=== PATIENT | male | born 1985 | race Caucasian/White ===

== ENCOUNTER 2017-12-05 06:52 | Observation (INO) | payer MEDICAID, SELFPAY ==
[2017-12-05 06:53] VITALS: BP 137/99; PULSE 47; RESP 17; TEMP 36.2; O2SAT 100; BMI 22.4
--- NOTE | 2017-12-05 07:27 | ED.DCSUM_ITS ---
- ER Visit Summary Date of Service: 12/05/17 Chief Complaint: [] Vomiting and diarrhea since Saturday History of Present Illness: The patient is a 32 M [] ports that a few prior to the onset of this illness he was exposed to a child had copious vomiting and diarrhea indicates on Saturday he began having copious diarrhea and vomiting. He has had no fevers no blood per rectum or stool. He has no history of GI elements he denies a past history he reports the symptoms seem to improve the other day and they have intensified today we had copious diarrhea and vomiting this morning came in for evaluation, other than the exposure above he has had no exposure to bad food or other individuals were sick or antibiotics he has no history of GI elements and he denies a past history is on no meds Physical Examination: [] His vital signs are within normal range clinically looks well he is in no distress his mucous membranes are moist neck is supple the lungs are clear the heart tones are normal abdomen soft nontender the back is unremarkable upper lower extremities unremarkable neurologically is awake moving all 4 his neck is very supple Test Results: [] Emergency Department Course and Treatment: [] Copious vomiting and diarrhea since Saturday clinically looks well IV fluids screening labs Zofran The patient's labs are generally unremarkable except his lipase is elevated to about [address] abdomen done showed nothing acute is persistent having vomiting here no diarrhea despite IV fluids and management he continues to complain of discomfort he cannot take any by mouth given elevated lipase the lack of improvement ED management of asked the hospital seen further management options and admission reports he does not drink alcohol he has had no trauma to the abdomen and he has no history of pancreatitis or GI elements Treatment Plan: [] Disposition: [] Admit stable pending hospitalist evaluation Impression: [] Pancreatitis , intractable vomiting diarrhea This note was generated with Resolver dictation software. It may contain incorrect words, spelling, and punctuation that were not noted in review of the chart prior to signing ED Disposition - Plan for ED Patient: Chief Complaint: Nausea/Vomiting/Diarrhea Referrals: Care Physician,No Primary [Primary Care Provider] -
[2017-12-05] MEDS: 0.9% Normal Saline 1,000 ML 1000 ML IV (07:36)
[2017-12-05] MEDS: Morphine 4 MG/ML Syringe IV ×2 (07:36→10:20)
[2017-12-05] MEDS: Ondansetron 4 MG/2 ML Vial IV (07:36)
[2017-12-05 07:43] LABS: Absolute Lymphocyte Count 2.88 X10^3/ul (0.83-4.51); Absolute Neutrophil Count 8.6 X10^3/uL (2.0-7.7); Basophil# 0.03 X10^3/uL; Basophil% 0.2 % (0-1); Eosinophil# 0.17 X10^3/uL; Eosinophils% 1.3 % (0-5); Hematocrit 50.6 % (40-54); Hemoglobin 17.8 g/dl (13.0-16.5); Lymphocyte # 2.88 X10^3/ul (4.0); Lymphocyte % 22.8 % (19-41); Mean Corp Hgb Conc 35.2 g/gl (32-36); Mean Corpuscular Hgb 32.7 pg (27.0-32.0); Mean Corpuscular Volume 92.8 fL (80-94); Mean Platelet Vol. 10.4 fl (6.2-12.0); Monocyte# 0.95 X10^3/uL; Monocyte% 7.5 % (0-10); Neutrophil # 8.56 X10^3/uL (2.7-7.7); Platelet Count 266 K/mm3 (150-450); RBC Distribution Width SD 43.5 fl (35.1-43.9); Red Blood Count 5.45 M/mm3 (4.6-6.2); White Blood Count 12.6 K/mm3 (4.4-11.0)
[2017-12-05 07:45] LABS: POSITIVE COUNT NO; POSITIVE DIFFERENTIAL NO; POSITIVE MORPHOLOGY NO
[2017-12-05 08:00] LABS: AST(SGOT) 33 U/L (15-37); Alanine Aminotransfer ALT/SGPT 63 U/L (16-61); Albumin, Serum 4.8 g/dL (3.2-5.0); Alkaline Phosphatase 92 U/L (45-117); Anion Gap 9 (5-15); BUN 18 mg/dL (7-18); BUN/Creat Ratio 15.1 RATIO (10-20); Bilirubin, Direct 0.18 mg/dL (0.00-0.30); Calcium,Total 9.8 mg/dL (8.5-10.1); Chloride 103 mmol/L (98-107); Creatinine, Serum 1.19 mg/dL (0.70-1.30); EST Glomerular Filtration Rate 75 mL/min (>60); Est Glom Filt Rate - Afr Amer 91 mL/min (>60); Estimated Creatinine Clearance 100.06 ml/min; Globulin 4.6 g/dL (2.2-4.2); Glucose 103 mg/dL (74-106); Lipase 517 U/L (73-393); Potassium 3.3 mmol/L (3.5-5.1); Protein, Total 9.4 g/dL (6.4-8.2); Sodium Level 137 mmol/L (136-145)
[2017-12-05] MEDS: proMETHazine 25 MG/ML Syringe 12.5 MG IV (08:29)
--- NOTE | 2017-12-05 08:42 | CT_ITS ---
STUDY: CT ABDOMEN AND PELVIS WITHOUT CONTRAST REASON FOR EXAM: Male, 32 years old. 3 day history of nausea, vomiting and diarrhea. RADIATION DOSAGE (If Supplied By Facility): CTDIvol = ( 6.18 ) mGy, DLP = ( 316.59 ) mGycm TECHNIQUE: Transaxial images were obtained from the dome of the diaphragm to the symphysis pubis without oral contrast, and without intravenous contrast. Sagittal and coronal images were reconstructed. Individualized dose optimization techniques were used for this CT. COMPARISON: None. FINDINGS: The visualized lung bases are unremarkable. The visualized portions of the heart are within normal limits. Normal liver. Normal gallbladder and extrahepatic biliary system. Normal spleen. Normal pancreas. Normal bilateral adrenal glands. Normal right kidney. Normal left kidney. Normal visualized stomach. Normal small intestine. Normal colon. The appendix is visualized and appears normal. Normal abdominal aorta. Normal inferior vena cava. Normal retroperitoneum. Normal urinary bladder. Normal abdominal wall. Normal osseous structures. CT/Abdomen/Pelvis without Cont IMPRESSION: Normal unenhanced CT of the abdomen and pelvis. Electronically Signed: Luis Saunders MD at 9:34 EDT Tel [phone], Service support ,
[2017-12-05 08:48] LABS: Squamous Epithelial Cells - UA 0 SEEN /hpf (0-5)
[2017-12-05 08:49] LABS: Color, Urine Yellow (Yellow); Glucose, Dipstick Normal (Normal); Ketone-Dipstick 15 mg/dl (Negative); Leukocyte Esterase-Dipstick 25 /ul (Negative); Nitrite-Dipstick Negative (Negative); Occult Blood-Urine 10 /ul (Negative); Protein-Dipstick 30 mg/dl (Negative); Specific Gravity, Urine 1.025 (1.002-1.030); Urine Clarity Sl. Cloudy (Clear); Urine Urobilinogen 1 mg/dl (Normal)
[2017-12-05 08:50] LABS: Urine Bilirubin Dipstick 1 mg/dL (Negative)
[2017-12-05 08:55] LABS: Bacteria 1+ /hpf (None Seen); Mucous, Urine 2+ /hpf (<or=2+); Red Blood Cells-Urine 0-5 SEEN /hpf (0-5); White Blood Cells 0-5 SEEN /hpf (0-5)
[2017-12-05 09:11] VITALS: BP 145/71; PULSE 49; RESP 16; O2SAT 99
[2017-12-05] MEDS: 0.9% Normal Saline 1,000 ML 999 ML IV ×2 (09:12→10:21)
--- NOTE | 2017-12-05 10:16 | HP.PCM_ITS ---
Problem List (1) Intractable nausea and vomiting Status: Acute (2) Dehydration Status: Acute (3) Hypokalemia Status: Acute (4) Elevated lipase Status: Acute (5) Tobacco dependence Status: Chronic History of Present Illness Date of Admission: 12/05/17 Chief Complaint: N/V/D The patient is a 32 year old M with no significant PMH other than tobacco dependence who presented to the ED at [facility] on 12/05/17 c/o N/V/D and abdominal pain associated with subjective fevers and chills. He denies alcohol abuse and denies any fatty food intolerance. No regular use of NSAID's and no hx of PUD. States he was around a friend's child 2 weeks ago with N/V but the sx resolved in 48H. He has been sick for 3 days. Unable to keep anything down. VS in the ER were temp 97.1, pulse rate 47, blood pressure 137/99, respiratory rate 17 and he was 100% saturated on room air. White blood cell count is mildly increased at 12.6 with an unremarkable differential. He is hemoconcentrated with a hemoglobin of 17.8 secondary to dehydration. Platelet count is within normal limits. Electrolytes are unremarkable with the exception of a low potassium at 3.3. BUN is 18 creatinine is 1.19. ALT is mildly increased at 63 with an AST of 33. Lipase was 517. Urine specific gravity was 1.025 and there were 0-5 RBCs and 0-5 WBCs. Urine drug screen is positive for opiates and cannabinoids. He was given morphine sulfate in the emergency room prior to the drug screen being taken. He denies any use of opiates as an outpatient. He does admit to using cannabis a couple times a week. He is being admitted to the hospital with a diagnosis of gastroenteritis , possible pancreatitis ( although the elevation in lipase may be due to vomiting). Past Medical History Past Medical History (Chronic Problems): Chronic Problems Tobacco dependence (Chronic) Allergies Penicillins Allergy (Verified 12/05/17 06:52) Rash Home Medications: Ambulatory Orders Medication Instructions Recorded NK [NK] 12/05/17 Surgical History: no surgical history Psychiatric History: No pertinent psych hx Lives: Alone Smoking Status: Current every day smoker Tobacco Use: Cigarettes Alcohol: Occasional Drugs: Marijuana - a couple times a week. Review of Systems Constitutional: Reports: Anorexia, Chills, Fever, Malaise, Weakness Eyes: Denies: Blurred vision, Vision Change HEENT: Denies: Head Aches, Sinus Congestion, Sinus Drainage Cardiovascular: Denies: Chest Pain, Palpitations Respiratory: Denies: Cough, Shortness of breath at rest, Sputum production Gastrointestinal: Reports: Abdominal Pain, Diarrhea, Nausea, Vomiting Genitourinary: Denies: Dysuria Musculoskeletal: Denies: Joint Pain, Joint Tenderness Skin: Denies: Jaundice, Rash, Wounds Neurological: Denies: Numbness, Tingling, Focal weakness Psychiatric: Denies: Anxiety, Depression, Homicidal Ideations, Suicidal Ideations Endocrine: Denies: Change in Body Habitus Hematologic/ Lymphatic: Denies: Hx of blood clot VTE Information - Inpt Only VTE Present on Admission: No VTE Mechan Device Prophylaxis: None Reason prophylaxis not ordered:: Treatment Not Indicated - young, ambulatory and RF 0-1 Patient Problems: Active and Suspected Problems Intractable nausea and vomiting (Acute) Dehydration (Acute) Hypokalemia (Acute) Elevated lipase (Acute) - Physical Exam General: Alert, Oriented x3, Cooperative, - - looks ill HEENT: Atraumatic, PERRLA, EOMI, Normocephalic Oral: No Gingival or Mucosal Lesions/ Ulcerations, Dry Mucosa Neck: Supple, No JVD, Negative Carotid Bruits, No Nodes, No Nuchal Rigidity, Trachea Midline Lungs: Clear to auscultation, No rhonchi, No wheeze, No rales Cardiovascular: Regular rate, Regular Rhythm, Normal S1, Normal S2, No murmurs, No Ectopic Activity, No rub noted, No Gallop Abdomen: Bowel Sounds Present - not hyperactive, Soft, Non-Distended, Tender - diffusely tender.....seems to be worst in the mid-epigastric to RUQ area. Extremities: No clubbing, No cyanosis, No edema, Capillary Refill Less than 3 Seconds, No Calf Tenderness Skin: No rashes, No breakdown Musculoskeletal: No Tenderness to Palpation of Joints or Extremities, No Muscle Wasting Lymphatic: No Cervical, Supraclavicular, or Inguinal Adenopathy Neurological: Cranial nerves II-XII grossly intact, Neuro grossly intact Psych/Mental Status: Normal Affect, Appropriate Vital Signs Temp Pulse Resp BP Pulse Ox 97.1 F L 49 L 16 145/71 H 99 12/05/17 06:53 12/05/17 09:11 12/05/17 09:11 12/05/17 09:11 12/05/17 09:11 Oxygen Delivery Method Room Air Weight: 175 lb Body Mass Index (BMI) 22.4 Laboratory Tests Past 24 Hrs 12/05/17 12/05/17 12/05/17 07:35 07:35 08:40 WBC 12.6 H RBC 5.45 Hgb 17.8 H Hct 50.6 MCV 92.8 MCH 32.7 H MCHC 35.2 RDW 13.0 RDW Differential 43.5 Plt Count 266 MPV 10.4 Immature Gran % (Auto) 0.200 Neut % (Auto) 68.0 Lymph % (Auto) 22.8 [place] % (Auto) 7.5 Eos % (Auto) 1.3 Baso % (Auto) 0.2 Absolute Neuts (auto) 8.6 H Absolute Lymphs (auto) 2.88 Total Counted Not Reportable Sodium 137 Potassium 3.3 L Chloride 103 Carbon Dioxide 25.0 Anion Gap 9 BUN 18 Creatinine 1.19 Estim Creat Clear Calc 100.06 Est GFR (MDRD) Af Amer 91 Est GFR (MDRD) Non-Af 75 BUN/Creatinine Ratio 15.1 Glucose 103 Calcium 9.8 Total Bilirubin 0.90 Direct Bilirubin 0.18 AST 33 ALT 63 H Alkaline Phosphatase 92 Total Protein 9.4 H Albumin 4.8 Globulin 4.6 H Lipase 517 H Urine Color Yellow Urine Clarity Sl. Cloudy Urine pH 6.0 Ur Specific [place] 1.025 Urine Protein 30 H Urine Glucose (UA) Normal Urine Ketones 15 H Urine Occult Blood 10 H Urine Nitrite Negative Urine Bilirubin 1 H Urine Urobilinogen 1 H Ur Leukocyte Esterase 25 H Urine RBC 0-5 SEEN Urine WBC 0-5 SEEN Ur Squamous Epith Cells 0 SEEN Urine Bacteria 1+ Urine Mucus 2+ Urine Opiates Screen Urine Methadone Screen Ur Barbiturates Screen Ur Phencyclidine Scrn Ur Amphetamines Screen U Methamphetamin-MDMA U Benzodiazepines Scrn Urine Cocaine Screen U Cannabinoids Screen Ur Drug Screen Comment 12/05/17 08:40 WBC RBC Hgb Hct MCV MCH MCHC RDW RDW Differential Plt Count MPV Immature Gran % (Auto) Neut % (Auto) Lymph % (Auto) [place] % (Auto) Eos % (Auto) Baso % (Auto) Absolute Neuts (auto) Absolute Lymphs (auto) Total Counted Sodium Potassium Chloride Carbon Dioxide Anion Gap BUN Creatinine Estim Creat Clear Calc Est GFR (MDRD) Af Amer Est GFR (MDRD) Non-Af BUN/Creatinine Ratio Glucose Calcium Total Bilirubin Direct Bilirubin AST ALT Alkaline Phosphatase Total Protein Albumin Globulin Lipase Urine Color Urine Clarity Urine pH Ur Specific [place] Urine Protein Urine Glucose (UA) Urine Ketones Urine Occult Blood Urine Nitrite Urine Bilirubin Urine Urobilinogen Ur Leukocyte Esterase Urine RBC Urine WBC Ur Squamous Epith Cells Urine Bacteria Urine Mucus Urine Opiates Screen Pending Urine Methadone Screen Pending Ur Barbiturates Screen Pending Ur Phencyclidine Scrn Pending Ur Amphetamines Screen Pending U Methamphetamin-MDMA Pending U Benzodiazepines Scrn Pending Urine Cocaine Screen Pending U Cannabinoids Screen Pending Ur Drug Screen Comment Pending Assessment/Plan Active and Suspected Problems Intractable nausea and vomiting (Acute) Dehydration (Acute) Hypokalemia (Acute) Elevated lipase (Acute) Impressions 1. gastroenteritis 2. elevated Lipase with normal pancreas and GB on CT of the abdomen 3. dehydration 4. tobacco dependence 5. regular cannabis use Clear liquids MS for pain control antiemetics PRN Hydrate fecal leuko's, enteric pathogen panel Recheck the lab in the AM No DVT prophylaxis needed...he is ambulatory with a low risk for DVT Code Visit Inpatient E&M: 94551 Init Hosp L2
[2017-12-05 10:31] LABS: Amphetamine Urine VISTA NEGATIVE (<1000 ng/mL); Barbiturate Urine VISTA NEGATIVE (< 200 ng/mL); Benzodiazepine Urine VISTA NEGATIVE (< 200 ng/mL); Cocaine Urine VISTA NEGATIVE (< 300 ng/mL); Ecstacy Urine VISTA NEGATIVE (< 500 ng/mL); Methadone Urine VISTA NEGATIVE (< 300 ng/mL); PCP Urine VISTA NEGATIVE (< 25 ng/mL); THC Urine VISTA POSITIVE (< 50 ng/mL); Vista UDS pH Range 7
[2017-12-05 11:15] VITALS: BMI 21.5
[2017-12-05 11:21] VITALS: BMI 21.6
[2017-12-05 11:29] VITALS: BP 111/61; PULSE 41; RESP 18; TEMP 36.7; O2SAT 98
[2017-12-05 11:35] VITALS: PULSE 41
[2017-12-05 17:52] VITALS: BP 107/51; PULSE 49; RESP 18; TEMP 36.9; O2SAT 96
[2017-12-05 19:46] LABS: Lipase 1321 U/L (73-393)
[2017-12-05 21:07] VITALS: BP 106/47; PULSE 58; RESP 16; TEMP 36.7; O2SAT 98
[2017-12-06 03:39] VITALS: BP 115/68; PULSE 47; RESP 16; TEMP 37.1; O2SAT 100
[2017-12-06] MEDS: Morphine 4 MG/ML Syringe IV (03:46)
[2017-12-06 06:41] LABS: Absolute Lymphocyte Count 4.23 X10^3/ul (0.83-4.51); Absolute Neutrophil Count 5.4 X10^3/uL (2.0-7.7); Basophil# 0.05 X10^3/uL; Basophil% 0.5 % (0-1); Eosinophil# 0.28 X10^3/uL; Eosinophils% 2.5 % (0-5); Hemoglobin 15.2 g/dl (13.0-16.5); Lymphocyte # 4.23 X10^3/ul (4.0); Lymphocyte % 38.5 % (19-41); Mean Corp Hgb Conc 34.5 g/gl (32-36); Mean Corpuscular Hgb 32.2 pg (27.0-32.0); Mean Corpuscular Volume 93.2 fL (80-94); Mean Platelet Vol. 10.6 fl (6.2-12.0); Monocyte# 0.99 X10^3/uL; Neutrophil # 5.42 X10^3/uL (2.7-7.7); Neutrophil % 49.3 % (47-70); Platelet Count 235 K/mm3 (150-450); RBC Distribution Width CV 12.7 % (11.6-14.6); RBC Distribution Width SD 42.4 fl (35.1-43.9); Red Blood Count 4.72 M/mm3 (4.6-6.2)
[2017-12-06 06:50] LABS: POSITIVE COUNT NO; POSITIVE DIFFERENTIAL NO; POSITIVE MORPHOLOGY NO
[2017-12-06 07:08] LABS: AST(SGOT) 22 U/L (15-37); Alanine Aminotransfer ALT/SGPT 43 U/L (16-61); Albumin, Serum 3.4 g/dL (3.2-5.0); Alkaline Phosphatase 70 U/L (45-117); Anion Gap 8 (5-15); BUN 10 mg/dL (7-18); BUN/Creat Ratio 10.3 RATIO (10-20); Calcium,Total 8.6 mg/dL (8.5-10.1); Chloride 109 mmol/L (98-107); Cholesterol 259 mg/dL (200); Creatinine, Serum 0.97 mg/dL (0.70-1.30); EST Glomerular Filtration Rate 95 mL/min (>60); Est Glom Filt Rate - Afr Amer 115 mL/min (>60); Estimated Creatinine Clearance 117.84 ml/min; Globulin 3.5 g/dL (2.2-4.2); Glucose 96 mg/dL (74-106); High Density Lipoprotein 30 mg/dL; Magnesium 2.2 mg/dL (1.6-2.6); Phosphorus 2.8 mg/dL (2.5-4.9); Potassium 4.1 mmol/L (3.5-5.1); Protein, Total 6.9 g/dL (6.4-8.2); Sodium Level 143 mmol/L (136-145); Triglycerides 114 mg/dL; Very Low Density Lipoprotein 23 mg/dL (5-40)
[2017-12-06 08:46] VITALS: BP 113/59; PULSE 46; RESP 18; TEMP 36.4; O2SAT 97
--- NOTE | 2017-12-06 13:14 | PCM.DC ---
- Discharge Diagnoses Current Active Problems: Current Active and Chronic Problems Intractable nausea and vomiting (Acute) Dehydration (Acute) Hypokalemia (Acute) Elevated lipase (Acute) Tobacco dependence (Chronic) You will use the following diet at home:: Other - stick to a soft diet with no carbonated beverages, no caffeine and no alcohol for the next few days and then advance as tolerated. Your food should be the consistency of: Mechanical soft (ground) Your liquids should be the consistency of: Regular/Thin Discharge Activity: - - rest over the weekend and you can return to work on Saturday Return to work on:: 12/09/17 May resume sexual activity in: No Restrictions Call your doctor if you observe: Fever of 101 or Higher, - - recurrent severe diarrhea, nausea or vomiting. any blood from the rectum or in vomitus. Instructions: ED Gastroenteritis Viral Additional Instructions: You most likely had a viral infection. You were dehydrated at admission to the hospital and this contributed to feeling worse. you can use Imodium for diarrhea, or kaopectate. Both are available over the counter at any pharmacy or supermarket. I have given you a prescription for Protonix which is an acid alvino that will help with nausea and stomach pain. He will take 1 daily for the next 7 days. Avoid caffeine, alcohol, spicy foods or fatty foods for the next few days. Allergies/Adverse Reactions: Allergies Penicillins Allergy (Verified 12/05/17 06:52) Rash Medications to take at Discharge Pantoprazole Sodium [Protonix] 40 mg PO DAILY #7 tab 12/06/17 The following prescriptions were given: Pantoprazole Sodium [Protonix] 40 mg PO DAILY #7 tab Primary Care Physician: Care Physician,No Primary [Primary Care Provider] - Proposed Discharge Date: 12/06/17
--- NOTE | 2017-12-06 13:25 | PCM.DC.SUM ---
Discharge Date and Diagnosis - Problem List Patient Problems: Active and Suspected Problems Gastroenteritis (Acute) Intractable nausea and vomiting (Acute) Dehydration (Acute) Hypokalemia (Acute) Elevated lipase (Acute) Date of Admission: 12/05/17 Date of Discharge: 12/06/17 - Primary Discharge Diagnosis Active and Suspected Problems Gastroenteritis (Acute) Intractable nausea and vomiting (Acute) Dehydration (Acute) Hypokalemia (Acute) Elevated lipase (Acute) likely due to vomiting - pancreatitis ruled out - Secondary Discharge Diagnosis Chronic Problems Cannabis use, uncomplicated (Chronic) Tobacco dependence (Chronic) Hospital Course and Treatment Imaging Results: Clinical Impression(s) from Imaging Studies Abdomen/Pelvis CT 12/05/17 08:42 IMPRESSION: Normal unenhanced CT of the abdomen and pelvis. Electronically Signed: Luis Saunders MD at 9:34 EDT Tel [phone], Service support , Laboratory Tests 12/05/17 12/05/17 12/05/17 07:35 07:35 08:40 WBC 12.6 H RBC 5.45 Hgb 17.8 H Hct 50.6 MCV 92.8 MCH 32.7 H MCHC 35.2 RDW 13.0 RDW Differential 43.5 Plt Count 266 MPV 10.4 Immature Gran % (Auto) 0.200 Neut % (Auto) 68.0 Lymph % (Auto) 22.8 [place] % (Auto) 7.5 Eos % (Auto) 1.3 Baso % (Auto) 0.2 Absolute Neuts (auto) 8.6 H Absolute Lymphs (auto) 2.88 Total Counted Not Reportable Sodium 137 Potassium 3.3 L Chloride 103 Carbon Dioxide 25.0 Anion Gap 9 BUN 18 Creatinine 1.19 Estim Creat Clear Calc 100.06 Est GFR (MDRD) Af Amer 91 Est GFR (MDRD) Non-Af 75 BUN/Creatinine Ratio 15.1 Glucose 103 Calcium 9.8 Phosphorus Magnesium Total Bilirubin 0.90 Direct Bilirubin 0.18 AST 33 ALT 63 H Alkaline Phosphatase 92 Total Protein 9.4 H Albumin 4.8 Globulin 4.6 H Albumin/Globulin Ratio Triglycerides Cholesterol LDL Cholesterol VLDL Cholesterol HDL Cholesterol Lipase 517 H Urine Color Yellow Urine Clarity Sl. Cloudy Urine pH 6.0 Ur Specific [place] 1.025 Urine Protein 30 H Urine Glucose (UA) Normal Urine Ketones 15 H Urine Occult Blood 10 H Urine Nitrite Negative Urine Bilirubin 1 H Urine Urobilinogen 1 H Ur Leukocyte Esterase 25 H Urine RBC 0-5 SEEN Urine WBC 0-5 SEEN Ur Squamous Epith Cells 0 SEEN Urine Bacteria 1+ Urine Mucus 2+ Urine Opiates Screen Urine Methadone Screen Ur Barbiturates Screen Ur Phencyclidine Scrn Ur Amphetamines Screen U Methamphetamin-MDMA U Benzodiazepines Scrn Urine Cocaine Screen U Cannabinoids Screen Ur Drug Screen Comment 12/05/17 12/05/17 12/06/17 08:40 18:53 06:18 WBC 11.0 RBC 4.72 Hgb 15.2 Hct 44.0 MCV 93.2 MCH 32.2 H MCHC 34.5 RDW 12.7 RDW Differential 42.4 Plt Count 235 MPV 10.6 Immature Gran % (Auto) 0.200 Neut % (Auto) 49.3 Lymph % (Auto) 38.5 [place] % (Auto) 9.0 Eos % (Auto) 2.5 Baso % (Auto) 0.5 Absolute Neuts (auto) 5.4 Absolute Lymphs (auto) 4.23 Total Counted Not Reportable Sodium Potassium Chloride Carbon Dioxide Anion Gap BUN Creatinine Estim Creat Clear Calc Est GFR (MDRD) Af Amer Est GFR (MDRD) Non-Af BUN/Creatinine Ratio Glucose Calcium Phosphorus Magnesium Total Bilirubin Direct Bilirubin AST ALT Alkaline Phosphatase Total Protein Albumin Globulin Albumin/Globulin Ratio Triglycerides Cholesterol LDL Cholesterol VLDL Cholesterol HDL Cholesterol Lipase 1321 H Urine Color Urine Clarity Urine pH Ur Specific [place] Urine Protein Urine Glucose (UA) Urine Ketones Urine Occult Blood Urine Nitrite Urine Bilirubin Urine Urobilinogen Ur Leukocyte Esterase Urine RBC Urine WBC Ur Squamous Epith Cells Urine Bacteria Urine Mucus Urine Opiates Screen POSITIVE H Urine Methadone Screen NEGATIVE Ur Barbiturates Screen NEGATIVE Ur Phencyclidine Scrn NEGATIVE Ur Amphetamines Screen NEGATIVE U Methamphetamin-MDMA NEGATIVE U Benzodiazepines Scrn NEGATIVE Urine Cocaine Screen NEGATIVE U Cannabinoids Screen POSITIVE H Ur Drug Screen Comment 12/06/17 06:18 WBC RBC Hgb Hct MCV MCH MCHC RDW RDW Differential Plt Count MPV Immature Gran % (Auto) Neut % (Auto) Lymph % (Auto) [place] % (Auto) Eos % (Auto) Baso % (Auto) Absolute Neuts (auto) Absolute Lymphs (auto) Total Counted Sodium 143 Potassium 4.1 Chloride 109 H Carbon Dioxide 26.0 Anion Gap 8 BUN 10 Creatinine 0.97 Estim Creat Clear Calc 117.84 Est GFR (MDRD) Af Amer 115 Est GFR (MDRD) Non-Af 95 BUN/Creatinine Ratio 10.3 Glucose 96 Calcium 8.6 Phosphorus 2.8 Magnesium 2.2 Total Bilirubin 0.70 Direct Bilirubin AST 22 ALT 43 Alkaline Phosphatase 70 Total Protein 6.9 Albumin 3.4 Globulin 3.5 Albumin/Globulin Ratio 1.0 Triglycerides 114 Cholesterol 259 H LDL Cholesterol 206 H VLDL Cholesterol 23 HDL Cholesterol 30 L Lipase Urine Color Urine Clarity Urine pH Ur Specific [place] Urine Protein Urine Glucose (UA) Urine Ketones Urine Occult Blood Urine Nitrite Urine Bilirubin Urine Urobilinogen Ur Leukocyte Esterase Urine RBC Urine WBC Ur Squamous Epith Cells Urine Bacteria Urine Mucus Urine Opiates Screen Urine Methadone Screen Ur Barbiturates Screen Ur Phencyclidine Scrn Ur Amphetamines Screen U Methamphetamin-MDMA U Benzodiazepines Scrn Urine Cocaine Screen U Cannabinoids Screen Ur Drug Screen Comment none Operations: None Procedures: None Summary of Care Provided: The patient is a 32 year old M with no significant PMH other than tobacco dependence who presented to the ED at [facility] on 12/05/17 c/o N/V/D and abdominal pain associated with subjective fevers and chills. He denied alcohol abuse and denied any fatty food intolerance. No regular use of NSAID's and no hx of PUD. He stated he was around a friend's child 2 weeks ago with N/V but the sx resolved in 48H. He had been sick for 3 days. Unable to keep anything down. VS in the ER were temp 97.1, pulse rate 47, blood pressure 137/99, respiratory rate 17 and he was 100% saturated on room air. White blood cell count is mildly increased at 12.6 with an unremarkable differential. He was hemoconcentrated with a hemoglobin of 17.8 secondary to dehydration. Platelet count was within normal limits. Electrolytes were unremarkable with the exception of a low potassium at 3.3. BUN was 18 and the creatinine was 1.19. ALT was mildly increased at 63 with an AST of 33. Lipase was 517. Urine specific gravity was 1.025 and there were 0-5 RBCs and 0-5 WBCs. Urine drug screen was positive for opiates and cannabinoids. He was given morphine sulfate in the emergency room prior to the drug screen being taken. He denied any use of opiates as an outpatient. He did admit to using cannabis a couple times a week. He was admitted to the hospital with a diagnosis of gastroenteritis, and mildly elevated liapse (the elevation in lipase may be due to vomiting).....he had no LUQ abdominal pain and the pancreas on the CT scan was normal. The gallbladder and biliary ducts appeared normal on the CT scan as well. Is admitted to the hospital and hydrated. Potassium was supplemented. Stool cultures and fecal leukocytes were ordered however the patient had no bowel movements during his hospital stay. He was initially on clear liquids which he tolerated well. The following day he was afebrile with stable vital signs. Potassium was within normal limits and the creatinine increased from 1.19 at admission to 0.97 with hydration. His diet was advanced to a no gastric stimulus/low residue diet and he tolerated this without any nausea, vomiting, abdominal pain. He was discharged home with a prescription for Protonix 40 mg daily, #7 tablets. He was instructed to avoid caffeine, alcohol, spicy foods and high residue foods for the next few days. He was given a work excuse and instructed he may return to work on 12/09/17. On physical examination the date of discharge the abdomen was soft, flat, nondistended, with normal bowel sounds no guarding. This note was generated with [employer] dictation software. It may contain incorrect words, spelling, and punctuation that were not noted in checking the note before signing. Discharge Activity: - - rest over the weekend and you can return to work on Saturday Return to work on:: 12/09/17 May resume sexual activity in: No Restrictions Call your doctor if you observe: Fever of 101 or Higher, - - recurrent severe diarrhea, nausea or vomiting. any blood from the rectum or in vomitus. Home Medications: Medications to take at Discharge Pantoprazole Sodium [Protonix] 40 mg PO DAILY #7 tab 12/06/17 Following Prescrptions Were Given to Patient: Pantoprazole Sodium [Protonix] 40 mg PO DAILY #7 tab Primary Care Physician: Care Physician,No Primary [Primary Care Provider] - Patient Instructions: ED Gastroenteritis Viral Disposition: Home Minutes spent on discharge:: 25 Patient Condition:: Good Medical Necessity - Tobacco Use Smoking Status: Current every day smoker Tobacco Use: Cigarettes Meaningful Use Info Meaningful Use Diagnoses (Choose all that apply): None applicable Code Visit Inpatient E&M: 67647 Disch Hosp
[2017-12-06 13:32] VITALS: BP 123/65; PULSE 49; RESP 18; TEMP 36.8; O2SAT 99
== END 2017-12-06 13:36 | disposition home or self-care (01) ==
LOC: ED 08:06 → MS2 10:26
PROVIDERS: Admitting Provider Internal Medicine; Emergency Provider Emergency Medicine; Visit Provider Internal Medicine
DX: E86.0 Dehydration (principal); K52.9 Noninfective gastroenteritis and colitis, unspecified; E87.6 Hypokalemia; R74.8 Abnormal levels of other serum enzymes; F17.210 Nicotine dependence, cigarettes, uncomplicated
CPT/HCPCS: 36415; 74176; 80048; 80053; 80061; 80076; 80307; 81001; 83690; 83735; 84100; 85025; 96361; 96365; 96366; 96375; 96376; 97802; 99218; 99284; 99406; J7030; J7120; A4216; G0378